=== PATIENT | male | born 1955 | race Caucasian/White ===

== ENCOUNTER → 2016-03-14 | Outpatient (CLI) | payer BC | LOC: BHSO 15:26 | DX: Z02.89 Encounter for other administrative examinations (principal) ==

== ENCOUNTER → 2016-05-12 | Outpatient (CLI) | payer BC | LOC: BHSO 12:57 | DX: Z02.89 Encounter for other administrative examinations (principal) ==

== ENCOUNTER → 2016-07-28 | Outpatient (CLI) | payer BC | LOC: BHSO 16:20 | DX: Z02.89 Encounter for other administrative examinations (principal) ==

== ENCOUNTER → 2017-01-16 | Outpatient (CLI) | payer BC | LOC: BHSO 16:30 | DX: F41.1 Generalized anxiety disorder (principal) ==